=== PATIENT | male | born 1965 | race Caucasian/White ===

== ENCOUNTER 2016-11-03 09:32 | Emergency (ER) | payer SELFPAY ==
[~2016-11-03] VITALS: Ht 175.3 cm; Wt 72.0 kg
[2016-11-03 09:33] VITALS: BP 128/76; PULSE 60; RESP 16; TEMP 98.9; O2SAT 100
[2016-11-03] MEDS ORDERED: MULT1TAB46 PO (09:55)
[2016-11-03] MEDS ORDERED: CEPH-460 PO (09:55)
[2016-11-03] MEDS ORDERED: TRAM50TA PO ×2 (09:55→10:16)
[2016-11-03] MEDS ORDERED: BACT800T5 PO (09:55)
[2016-11-03] MEDS ORDERED: CLIN1CAP5 PO (10:16)
--- NOTE | 2016-11-03 10:17 | PD ---
HPI Chief Complaint: Wound/Suture/Staple Re-Check Time Seen by Provider: 10:15 Travel History International Travel<30 days: No Contact w/Intl Traveler<30days: No Traveled to known affect area: No History of Present Illness HPI 51 yo M arrives for packing removal from R upper back abscess. Pt seen at outside hospital about 6 days prior where abscess was incised and drained and patient filled keflex/bactrim scripts and took abx. No fever. Persistent pain reported however Tramadol helped. PFSH Past Medical History Medical History: Denies Significant Hx Immunizations Current: Yes Tetanus Vaccination: > 5 Years Past Surgical History Other Surgery: Yes (LAC REPAIRS TO RIGHT WRIST, LAC REPAIR LEFT LOWER LEG) Social History Alcohol Use: Yes (RARE) Tobacco Use: Yes (1/2 PPD) Substance Use: No Allergies-Medications (Allergen,Severity, Reaction): Coded Allergies: hydrocodone (Verified Adverse Reaction, Intermediate, PANIC ATTACK, ) Reported Meds & Prescriptions Reported Meds & Active Scripts Active Clindamycin (Clindamycin HCl) 150 Mg Cap 450 Mg PO Q8HR 10 Days Tramadol (Tramadol HCl) 50 Mg Tab 50 Mg PO Q6H PRN Reported Multi Vitamin Daily (Multiple Vitamin) 1 Tab Tab 1 Tab PO DAILY Keflex (Cephalexin) 500 Mg Cap 500 Mg PO Q8H Bactrim DS (Sulfamethoxazole-Trimethoprim) 800-160 Mg Tab 1 Tab PO BID Review of Systems General / Constitutional: No: Fever Respiratory: No: Shortness of Breath Physical Exam Narrative GENERAL: 51 yo M, NAD, WNWD SKIN: Warm and dry. R upper back erythema, induration/cellulitic change present , ++ purulent drainage. Appropriate TTP. No crepitus. Overall area of erythema approx 7cm maximum diameter, HEAD: Normocephalic. EYES: No scleral icterus. No injection or drainage. NECK: Supple, trachea midline. No JVD or lymphadenopathy. CARDIOVASCULAR: Regular rate and rhythm without murmurs, gallops, or rubs. MUSCULOSKELETAL: No cyanosis, or edema. BACK: Nontender without obvious deformity. No CVA tenderness. Data Data Last Documented VS Vital Signs Date Time Temp Pulse Resp B/P (MAP) Pulse Ox O2 Delivery O2 Flow Rate FiO2 11/03/16 09:33 98.9 60 16 128/76 (93) 100 VS reviewed Orders Orders Clindamycin (Cleocin) (11/03/16 10:30) Wound Culture And Gram Stain (11/03/16 10:19) MDM Medical Decision Making Medical Screen Exam Complete: Yes Emergency Medical Condition: Yes Differential Diagnosis abscess, cellulitis, necrotizing fasciitis, myositis, sepsis Narrative Course Wound irrigated extensively after purulent drainage expressed. Clinda 450mg TID x 1 week. Return 2 days for wound check. Twice daily cleansing at home discussed. Need for clean bandaging discussed. Diagnosis Primary Impression: Cellulitis of back Referrals: RETURN TO ER IN 2 DAYS FOR WOUND CHECK Additional Instructions: PLEASE RETURN IN 2 DAYS FOR A WOUND CHECK. PLEASE RETURN SOONER IF YOU DEVELOP A FEVER OR PAIN WORSENS. Med/Other Pt SpecificInfo: Prescription(s) given Scripts Clindamycin (Clindamycin) 150 Mg Cap 450 MG PO Q8HR for Infection for 10 Days, CAP 0 Refills Prov: Jorge Wesley MD 11/03/16 Tramadol (Tramadol) 50 Mg Tab 50 MG PO Q6H Y for PAIN, #30 TAB 0 Refills Prov: Jorge Wesley MD 11/03/16 Disposition: 01 DISCHARGE HOME Condition: Stable Jorge Wesley MD Nov 03, 2016 10:17
[2016-11-03] MEDS ORDERED: CLINDAMYCIN 150 MG CAP PO ONE (10:30)
== END 2016-11-03 10:35 | disposition home or self-care (01) ==
LOC: PHED 09:32
DX: L03.312 Cellulitis of back [any part except buttock and flank] (principal); F17.210 Nicotine dependence, cigarettes, uncomplicated
CPT/HCPCS: 87070; 87077; 87186; 99284

== ENCOUNTER 2017-01-13 14:53 | Emergency (ER) | payer SELFPAY ==
[~2017-01-13] VITALS: Ht 170.2 cm; Wt 71.4 kg
[~2017-01-13 14:53] MED LIST: BACT800T5 PO; CEPH-460 PO; CLIN150C14 PO; MULT1TAB46 PO; TRAM50TA PO
[2017-01-13 15:58] VITALS: BP 133/72; PULSE 79; RESP 18; TEMP 99.5; O2SAT 99
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
[2017-01-13] MEDS ORDERED: NON-500T13 PO (18:52)
== END 2017-01-13 18:54 | disposition home or self-care (01) ==
LOC: PHEFT 14:53
DX: T20.14XA Burn of first degree of nose (septum), initial encounter (principal); V48.6XXA Car passenger injured in noncollision transport accident in traffic accident, initial encounter; W22.12XA Striking against or struck by front passenger side automobile airbag, initial encounter
CPT/HCPCS: 70486; 99284

== ENCOUNTER 2017-04-07 21:16 | Inpatient (IN) | payer SELFPAY ==
[~2017-04-07] VITALS: Ht 175.3 cm; Wt 70.0 kg
[~2017-04-07 21:16] MED LIST changes: -BACT800T5 PO; -CEPH-460 PO; -CLIN150C14 PO; +NON-500T13 PO; -TRAM50TA PO
[2017-04-07 23:28] VITALS: BP 137/73; PULSE 61; RESP 17; TEMP 97.2
[2017-04-07] MEDS ORDERED: diphenhydrAMINE HCL 50 MG CAP - HS PRN PO (23:30)
[2017-04-07] MEDS ORDERED: ALUMINUM/MAGNESIUM/SIMETH 30 ML CUP PO PRN (23:30)
[2017-04-07] MEDS ORDERED: diphenhydrAMINE HCL 50 MG/ML VIAL - HS PRN IM (23:30)
[2017-04-07] MEDS ORDERED: ACETAMINOPHEN 325 MG TAB PO PRN (23:30)
[2017-04-07] MEDS ORDERED: MAGNESIUM HYDROXIDE SUSP 30 ML CUP PO PRN (23:30)
[2017-04-07] MEDS ORDERED: hydrOXYzine HCL 50 MG TAB PO PRN (23:30)
[2017-04-08] MEDS ORDERED: LORazepam 1 MG TAB PO PRN (00:15)
[2017-04-08] MEDS ORDERED: LORazepam 2 MG/ML VIAL IV PUSH PRN ×4 (00:15)
[2017-04-08] MEDS ORDERED: LORazepam 2 MG TAB PO PRN (00:15)
[2017-04-08] MEDS ORDERED: FLUMAZENIL 0.5 MG/5 ML VIAL IV PUSH PRN (00:15)
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
[2017-04-08] MEDS: ESCITALOPRAM OXALATE 10 MG TAB PO SCH (13:00)
[2017-04-08 15:08] LABS: AUTOMATED NEUTROPHIL # 4.4 TH/MM3 (1.8-7.7); BASOPHIL % 0.3 % (0.0-2.0); EOSINOPHIL # 0.4 TH/MM3 (0-0.4); EOSINOPHIL % 5.7 % (0.0-4.0); HEMATOCRIT 39.4 % (39.0-51.0); HEMOGLOBIN 14.2 GM/DL (13.0-17.0); LYMPH % 23.8 % (9.0-44.0); LYMPHOCYTE # 1.7 TH/MM3 (1.0-4.8); MEAN CELL VOLUME 91.1 FL (80.0-100.0); MEAN CORPUSCULAR HEMOGLOBIN 32.7 PG (27.0-34.0); MEAN CORPUSCULAR HGB CONC 35.9 % (32.0-36.0); MEAN PLATELET VOLUME 7.1 FL (7.0-11.0); MONO % 6.7 % (0.0-8.0); MONOCYTE # 0.5 TH/MM3 (0-0.9); NEUT % 63.5 % (16.0-70.0); PLATELET COUNT 249 TH/MM3 (150-450); RED BLOOD COUNT 4.32 MIL/MM3 (4.50-5.90); RED CELL DISTRIBUTION WIDTH 13.4 % (11.6-17.2); WHITE BLOOD COUNT 6.9 TH/MM3 (4.0-11.0)
[2017-04-08 15:22] LABS: ALBUMIN 3.2 GM/DL (3.4-5.0); ALT (GPT) 38 U/L (12-78); AST (GOT) 17 U/L (15-37); BICARBONATE 31.2 MEQ/L (21.0-32.0); BLOOD UREA NITROGEN 9 MG/DL (7-18); CALCIUM 8.6 MG/DL (8.5-10.1); CHLORIDE 105 MEQ/L (98-107); CREATININE 0.99 MG/DL (0.60-1.30); GLOMERULAR FILTRATION RATE 80 ML/MIN (>89); GLUCOSE,RANDOM 107 MG/DL (74-106); SODIUM (NA) 140 MEQ/L (136-145)
[2017-04-08 15:32] LABS: ALKALINE PHOSPHATASE 77 U/L (45-117); TOTAL BILIRUBIN ADULT 0.3 MG/DL (0.2-1.0); TOTAL PROTEIN 6.4 GM/DL (6.4-8.2)
[2017-04-08 17:28] VITALS: BP 131/68; PULSE 56; RESP 18; TEMP 98.6; O2SAT 97
[2017-04-08] MEDS: IBUPROFEN 600 MG TAB PO PRN (20:38)
[2017-04-09 05:54] VITALS: BP 126/81; PULSE 64; RESP 16; TEMP 99.4; O2SAT 98
[2017-04-09] MEDS: ESCITALOPRAM OXALATE 10 MG TAB PO SCH (08:33)
[2017-04-09] MEDS: IBUPROFEN 600 MG TAB PO PRN ×2 (08:35→20:37)
--- NOTE | 2017-04-09 09:43 | PD.TTN ---
Patient Problems 1. Discharge planning 2. Medication compliance 3. Knowledge deficit 4. Lack of coping skills Progress Toward Goals Provider Present: Dr. Ellis Choduhury Provider Input: 04/09/17 - Patient presents with a hostile affect and reports that he would like to remain on the unit until Thurdsay. Psychiatric Counselors Present: PRETTY Clark Psych Therapist Input: 04/09/17 - Patient frequently mentions that he is quick to anger and violence. Patient appears angry and entitled. Group Spec/RT/OT/GAMBLE Present: MAVIS Villalobos Group Spec/RT/OT/GAMBLE Input: 04/09/17 - Patient is not participating. Discharge Plan SMA 04/09/17 - Patient will be discharged home when deemed appropriate by Dr. Choudhury. Documentation Scribe: GURINDER Clark Date Resolved: Apr 09, 2017 Linda Saul Apr 09, 2017 09:43
[2017-04-09] MEDS ORDERED: INFLUENZA VIRUS VACCINE (QUADRIVALENT) 0.5 ML SYR IM ONE (10:00)
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
[2017-04-09 17:59] VITALS: BP 126/81; PULSE 64; RESP 16; TEMP 99.4; O2SAT 98
[2017-04-09 18:01] VITALS: BP 119/60; PULSE 76; RESP 18; TEMP 96.9; O2SAT 97
[2017-04-10 05:41] VITALS: BP 115/64; PULSE 54; RESP 18; TEMP 98.1; O2SAT 95
[2017-04-10] MEDS: ESCITALOPRAM OXALATE 10 MG TAB PO SCH (08:58)
--- NOTE | 2017-04-10 11:06 | HHI.PYPN ---
Subjective Chief Complaint: Adjustment disorder Remarks Patient seen and examined. Chart reviewed. Case discussed with nursing staff. No behavioral issues overnight. Case discussed with counselor. Patient reportedly has a sober living bed for . On my exam, patient denies any SI/HI/AVH. He is somewhat entitled, querulous and faultfinding today, and in general his [place] II features are fairly prominent today. No mood or psychotic symptoms. No impairment in reality construction. Denies side effects from medications. No physical complaints. Review of Systems Except as stated in HPI: all other systems reviewed are Neg Mental Status Examination Appearance: Appropriate Consciousness: Alert Orientation: x4 Motor Activity: Other (no motor abnormalities noted) Speech: Unremarkable Language: Adequate Fund of Knowledge: Adequate Attention and Concentration: Adequate Memory: Unremarkable Mood: Irritable (mild) Affect: Irritable (mild) Thought Process & Associations: Intact, Logical, Linear Thought Content: Appropriate Hallucination Type: None Delusion Type: None Suicidal Ideation: No Suicidal Plan: No Suicidal Intention: No Homicidal Ideation: No Homicidal Plan: No Homicidal Intention: No Insight: Fair Judgment: Impulsive Results Labs Labs reviewed Vitals/IOs Vital Signs Date Time Temp Pulse Resp B/P (MAP) Pulse Ox O2 Delivery O2 Flow Rate FiO2 04/10/17 05:41 98.1 54 18 115/64 (81) 95 Assessment & Plan Problem List: (1) Adjustment disorder with mixed disturbance of emotions and conduct ICD Codes: F43.25 - Adjustment disorder with mixed disturbance of emotions and conduct (2) Mixed personality disorder ICD Codes: F60.89 - Other specific personality disorders Assessment & Plan Patient is denying HI today. Continues to want to get into sober living. Continue Lexapro as ordered. Continue to monitor on inpatient unit. Continue other meds and care as ordered. Justification for Cont. Inpt. Monitoring for impairment in safety, none noted. Discharge Planning Anticipate discharge tomorrow, to sober living. Request HC Surrog/Guard Advoc?: No Dallas Choudhury MD Apr 10, 2017 11:06
[2017-04-10 15:22] VITALS: BP 123/65; PULSE 61; RESP 18; TEMP 98.1; O2SAT 99
[2017-04-10] MEDS ORDERED: diphenhydrAMINE HCL 50 MG CAP PO SCH (21:00)
[2017-04-11 06:11] VITALS: BP 126/76; PULSE 66; RESP 16; TEMP 96.6; O2SAT 97
[2017-04-11] MEDS ORDERED: DIPH50CA PO (07:31)
[2017-04-11] MEDS ORDERED: ESCI10TA PO (07:31)
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
[2017-04-11] MEDS: ESCITALOPRAM OXALATE 10 MG TAB PO SCH (09:04)
== END 2017-04-11 10:40 | disposition home or self-care (01) | DRG 882 ==
LOC: H270 22:46
PROVIDERS: ADMIT Psychiatry & Neurology Psychiatry; ATTEND Psychiatry & Neurology Psychiatry
DX: F43.25 Adjustment disorder with mixed disturbance of emotions and conduct (principal); F60.89 Other specific personality disorders; Z23 Encounter for immunization
CPT/HCPCS: 80053; 84443; 85025; 90686; Q0163; Q2038